=== PATIENT | female | born 1990 | race Two or more races ===

== ENCOUNTER 2018-06-08 11:21 | Emergency (ER) | payer MEDICAID ==
[~2018-06-08] VITALS: Ht 154.9 cm; Wt 87.7 kg
[2018-06-08 11:36] VITALS: BP 121/79
[2018-06-08] MEDS ORDERED: IBUPROFEN 800 MG TAB PO ONE (12:30)
== END 2018-06-08 13:00 | disposition home or self-care (01) ==
LOC: ER 11:21
DX: S52.612A Displaced fracture of left ulna styloid process, initial encounter for closed fracture (principal); S52.502A Unspecified fracture of the lower end of left radius, initial encounter for closed fracture; W01.0XXA Fall on same level from slipping, tripping and stumbling without subsequent striking against object, initial encounter; Y93.E9 Activity, other interior property and clothing maintenance; Y92.89 Other specified places as the place of occurrence of the external cause; Y99.8 Other external cause status
CPT/HCPCS: 29125; 73110